=== PATIENT | male | born 1985 | race Hispanic/Latino ===

== ENCOUNTER → 2018-01-10 | Outpatient (CLI) | payer BC ==
--- NOTE | 2018-01-10 18:27 | Diagnostic Imaging Report ---
EXAM: CT Abdomen and Pelvis WITH contrast INDICATION: Abdominal pain. COMPARISON: None. TECHNIQUE: Abdomen and pelvis were scanned utilizing a multidetector helical scanner from the lung base to the pubic symphysis after administration of IV contrast. Coronal and sagittal reformations were obtained. Routine protocol was performed. Scan was performed when during portal venous phase. IV CONTRAST: 100 mL of Isovue 370 ORAL CONTRAST: Water COMPLICATIONS: None RADIATION DOSE: Total DLP: 341.38 mGy*cm Estimated effective dose: (DLP x 0.015 x size factor) mSv CTDIvol has been reviewed. It is below the limits set by the Radiation Protocol Committee (RPC). FINDINGS: LINES and TUBES: None. LOWER THORAX: Unremarkable HEPATOBILIARY: The liver is diffuse hypodense compared to the spleen, consistent with diffuse hepatic diffuse hepatic steatosis. No focal hepatic lesions. No biliary ductal dilation. GALLBLADDER: No radio-opaque stones or sludge. No wall thickening. SPLEEN: No splenomegaly. PANCREAS: No focal masses or ductal dilatation. ADRENALS: No adrenal nodules KIDNEYS/URETERS: Kidneys enhance symmetrically. No hydronephrosis. No cystic or solid mass lesions. No stones. GI TRACT: No abnormal distention, wall thickening, or evidence of bowel obstruction. Appendix is normal. PELVIC ORGANS/BLADDER: Unremarkable. LYMPH NODES: No lymphadenopathy. VESSELS: Unremarkable. PERITONEUM / RETROPERITONEUM: No free air or fluid. BONES: Unremarkable. SOFT TISSUES: Unremarkable. IMPRESSION: 1. Diffuse hepatic steatosis. 2. Otherwise, unremarkable abdomen and pelvis. Signed by: Dr. Norman Rios M.D. on 01/10/2018 6:24 PM
== END ==
LOC: CT 16:55
PROVIDERS: ATTEND Family Medicine
DX: R10.9 Unspecified abdominal pain (principal)
CPT/HCPCS: 74177

== ENCOUNTER 2023-10-25 07:43 | Emergency (ER) | payer BC, OTHER ==
[~2023-10-25] VITALS: Ht 170.2 cm; Wt 81.6 kg
[2023-10-25] MEDS: IBUPROFEN 600 MG TAB PO STA (08:03)
[2023-10-25 10:10] VITALS: PULSE 68; RESP 16; TEMP 98.2; O2SAT 99
[2023-10-25] MEDS ORDERED: METHOCARBAMOL750 MG PO (10:14)
== END 2023-10-25 10:24 | disposition home or self-care (01) ==
LOC: ER 07:49
DX: S10.83XA Contusion of other specified part of neck, initial encounter (principal); S20.211A Contusion of right front wall of thorax, initial encounter; M54.6 Pain in thoracic spine; M62.838 Other muscle spasm; V43.52XA Car driver injured in collision with other type car in traffic accident, initial encounter; Y92.488 Other paved roadways as the place of occurrence of the external cause
CPT/HCPCS: 71101; 72050; 99283